=== PATIENT | male | born 1950 | race Caucasian/White ===

== ENCOUNTER 2023-05-16 08:28 | Day surgery (SDC) | payer MEDICARE ==
[2023-05-16] MEDS ORDERED: EUTHYROX88 MCG (09:04)
[2023-05-16] MEDS ORDERED: LOSA50 (09:05)
[2023-05-16] MEDS ORDERED: TESTOSTERONE CYP5 GM (09:05)
[2023-05-16] MEDS ORDERED: CREON DR 12,001 EACH (09:06)
[2023-05-16 10:58] VITALS: BP 113/64
== END 2023-05-16 11:00 | disposition home or self-care (01) ==
LOC: ORSCSDS 08:28
PROVIDERS: Internal Medicine Gastroenterology
PROC: 0DDB8ZX Extraction of Ileum, Via Natural or Artificial Opening Endoscopic, Diagnostic (ICD-10-PCS; principal; 2023-05-16 09:45)
PROC: 0DDE8ZX Extraction of Large Intestine, Via Natural or Artificial Opening Endoscopic, Diagnostic (ICD-10-PCS; principal; 2023-05-16 09:45)
DX: K50.90 Crohn's disease, unspecified, without complications (principal); N18.9 Chronic kidney disease, unspecified; E03.9 Hypothyroidism, unspecified; E11.9 Type 2 diabetes mellitus without complications; Z87.891 Personal history of nicotine dependence; Z79.899 Other long term (current) drug therapy
CPT/HCPCS: 88305; J2704; J7120

== ENCOUNTER → 2023-05-21 | Outpatient (CLI) | payer MEDICARE ==
[~2023-05-21] MED LIST: CREON DR 12,001 EACH; EUTHYROX88 MCG; LOSA50; TESTOSTERONE CYP5 GM
[2023-05-23 16:35] LABS: CALPROTECTIN,FECAL 25 ug/g (<=49)
== END | disposition home or self-care (01) ==
LOC: LAB 12:38 → LAB SHORT 12:38
PROVIDERS: Internal Medicine Gastroenterology
DX: K50.912 Crohn's disease, unspecified, with intestinal obstruction (principal)
CPT/HCPCS: 83993

== ENCOUNTER 2023-05-26 01:45 | Day surgery (SDC) | payer MEDICARE ==
[~2023-05-26] VITALS: Wt 68.7 kg
[2023-05-26] MEDS ORDERED: Infliximab-DYYB 400 MG in NS 250 ML IV SCH (06:00)
[2023-05-26] MEDS ORDERED: Acetaminophen 325 MG TABLET PO SCH (12:50)
[2023-05-26] MEDS ORDERED: DiphenhydrAMINE HCL 25 MG Cap PO PRN (12:50)
[2023-05-26] MEDS ORDERED: Hydrocortisone Sod Succinate 100 MG Vial IV SCH (12:50)
[2023-05-26 13:56] VITALS: BP 107/64
== END 2023-05-26 16:13 | disposition home or self-care (01) ==
LOC: ATC 01:45
DX: K50.918 Crohn's disease, unspecified, with other complication (principal); E11.22 Type 2 diabetes mellitus with diabetic chronic kidney disease; N18.9 Chronic kidney disease, unspecified; Z88.2 Allergy status to sulfonamides; Z79.899 Other long term (current) drug therapy
CPT/HCPCS: 96413; 96415; J7050; Q5103

== ENCOUNTER 2023-06-09 08:30 | Day surgery (SDC) | payer MEDICARE ==
[~2023-06-09 08:30] MED LIST changes: +Infliximab-DYYB 400 MG in NS 250 ML IV SCH
[2023-06-09 13:41] VITALS: BP 122/52
== END 2023-06-09 16:20 | disposition home or self-care (01) ==
LOC: ATC 08:30
DX: K50.90 Crohn's disease, unspecified, without complications (principal); N18.9 Chronic kidney disease, unspecified; E03.9 Hypothyroidism, unspecified; Z88.2 Allergy status to sulfonamides; Z79.899 Other long term (current) drug therapy
CPT/HCPCS: 96413; 96415; J7050; Q5103

== ENCOUNTER → 2023-10-09 | Outpatient (CLI) | payer MEDICARE ==
[~2023-10-09] MED LIST changes: +DEPO-TESTO200 MG/18 IM; +EUTHYROX100 MC1 PO; +INFLECTRA100 MG; +IRON18 MG PO; -Infliximab-DYYB 400 MG in NS 250 ML IV SCH; +LOSA50 PO; +VITAMIN D31250 MC2 PO
[2023-10-11 11:18] LABS: PANCREATIC ELASTASE,FECAL 56 ug/g (>=100)
== END | disposition home or self-care (01) ==
LOC: LAB 11:20 → LAB SHORT 11:20
PROVIDERS: Physician Assistant Medical
DX: R19.7 Diarrhea, unspecified (principal)
CPT/HCPCS: 82653

== ENCOUNTER 2023-10-16 03:15 | Day surgery (SDC) | payer MEDICARE ==
[2023-10-16] MEDS ORDERED: Infliximab-DYYB 400 MG in NS 250 ML IV SCH (06:00)
[2023-10-16 08:07] VITALS: BP 163/73
== END 2023-10-16 11:02 | disposition home or self-care (01) ==
LOC: ATC 03:15
DX: K50.90 Crohn's disease, unspecified, without complications (principal); N18.9 Chronic kidney disease, unspecified; E03.9 Hypothyroidism, unspecified; Z87.891 Personal history of nicotine dependence; Z88.2 Allergy status to sulfonamides; Z79.890 Hormone replacement therapy; Z79.899 Other long term (current) drug therapy
CPT/HCPCS: 96413; 96415; J7050; Q5103

== ENCOUNTER 2023-12-11 02:39 | Day surgery (SDC) | payer MEDICARE ==
[2023-12-11] MEDS ORDERED: Infliximab-DYYB 400 MG in NS 250 ML IV SCH (06:00)
[2023-12-11 09:12] VITALS: BP 159/81
== END 2023-12-11 11:58 | disposition home or self-care (01) ==
LOC: ATC 02:39
DX: K50.00 Crohn's disease of small intestine without complications (principal); N18.9 Chronic kidney disease, unspecified; E03.9 Hypothyroidism, unspecified; Z87.891 Personal history of nicotine dependence; Z88.2 Allergy status to sulfonamides; Z79.890 Hormone replacement therapy; Z79.899 Other long term (current) drug therapy
CPT/HCPCS: 96413; 96415; J7050; Q5103

== ENCOUNTER 2024-02-05 02:37 | Day surgery (SDC) | payer MEDICARE ==
[~2024-02-05] VITALS: Wt 75.6 kg
[2024-02-05] MEDS ORDERED: Infliximab-DYYB 400 MG in NS 250 ML IV SCH (06:00)
[2024-02-05 08:58] VITALS: BP 136/58
== END 2024-02-05 11:31 | disposition home or self-care (01) ==
LOC: ATC 02:37
DX: K50.012 Crohn's disease of small intestine with intestinal obstruction (principal); N18.9 Chronic kidney disease, unspecified; Z87.891 Personal history of nicotine dependence; Z88.2 Allergy status to sulfonamides; Z79.899 Other long term (current) drug therapy
CPT/HCPCS: 96413; 96415; J7050; Q5103

== ENCOUNTER 2024-04-01 02:29 | Day surgery (SDC) | payer MEDICARE ==
[~2024-04-01] VITALS: Wt 75.3 kg
[~2024-04-01 02:29] MED LIST changes: +Infliximab-DYYB 400 MG in NS 250 ML IV SCH
[2024-04-01 14:11] VITALS: BP 145/68
== END 2024-04-01 16:41 | disposition home or self-care (01) ==
LOC: ATC 02:29
DX: K50.012 Crohn's disease of small intestine with intestinal obstruction (principal); N18.9 Chronic kidney disease, unspecified; Z87.891 Personal history of nicotine dependence; Z88.2 Allergy status to sulfonamides; Z88.8 Allergy status to other drugs, medicaments and biological substances; Z79.899 Other long term (current) drug therapy
CPT/HCPCS: 96413; 96415; J7050; Q5103

== ENCOUNTER 2024-05-27 00:50 | Day surgery (SDC) | payer MEDICARE ==
[~2024-05-27 00:50] MED LIST changes: -Infliximab-DYYB 400 MG in NS 250 ML IV SCH; +LEVOTHYROXINE112 M19 PO
[2024-05-27] MEDS ORDERED: Infliximab-DYYB 400 MG in NS 250 ML IV SCH (06:00)
[2024-05-27 13:54] VITALS: BP 160/74
== END 2024-05-27 16:34 | disposition home or self-care (01) ==
LOC: ATC 00:50
DX: K50.012 Crohn's disease of small intestine with intestinal obstruction (principal); E11.22 Type 2 diabetes mellitus with diabetic chronic kidney disease; N18.9 Chronic kidney disease, unspecified; E03.9 Hypothyroidism, unspecified; Z87.891 Personal history of nicotine dependence; Z88.2 Allergy status to sulfonamides; Z79.899 Other long term (current) drug therapy
CPT/HCPCS: 96413; 96415; J7050; Q5103

== ENCOUNTER 2024-07-21 01:37 | Day surgery (SDC) | payer MEDICARE ==
[~2024-07-21] VITALS: Wt 76.6 kg
[2024-07-21] MEDS ORDERED: Infliximab-DYYB 400 MG in NS 250 ML IV SCH (06:00)
[2024-07-21 13:38] VITALS: BP 143/69
== END 2024-07-21 16:19 | disposition home or self-care (01) ==
LOC: ATC 01:37
DX: K50.012 Crohn's disease of small intestine with intestinal obstruction (principal); N18.9 Chronic kidney disease, unspecified; Z87.891 Personal history of nicotine dependence; Z88.2 Allergy status to sulfonamides; Z79.890 Hormone replacement therapy; Z79.899 Other long term (current) drug therapy
CPT/HCPCS: 96413; 96415; J7050; Q5103

== ENCOUNTER 2024-09-15 00:51 | Day surgery (SDC) | payer MEDICARE ==
[~2024-09-15 00:51] MED LIST changes: +Infliximab-DYYB 400 MG in NS 250 ML IV SCH
[2024-09-15 14:12] VITALS: BP 138/63
== END 2024-09-15 16:39 | disposition home or self-care (01) ==
LOC: ATC 00:51
DX: K50.90 Crohn's disease, unspecified, without complications (principal); N18.9 Chronic kidney disease, unspecified; E55.9 Vitamin D deficiency, unspecified; K86.89 Other specified diseases of pancreas; Z87.891 Personal history of nicotine dependence; Z79.620 Long term (current) use of immunosuppressive biologic; Z79.890 Hormone replacement therapy; Z79.899 Other long term (current) drug therapy; Z88.2 Allergy status to sulfonamides; Z90.49 Acquired absence of other specified parts of digestive tract
CPT/HCPCS: 96413; 96415; J7050; Q5103

== ENCOUNTER 2024-11-09 01:08 | Day surgery (SDC) | payer MEDICARE ==
[~2024-11-09 01:08] MED LIST changes: -Infliximab-DYYB 400 MG in NS 250 ML IV SCH
[2024-11-09 14:02] VITALS: BP 133/68
== END 2024-11-09 16:35 | disposition home or self-care (01) ==
LOC: ATC 01:08
DX: K50.012 Crohn's disease of small intestine with intestinal obstruction (principal); E55.9 Vitamin D deficiency, unspecified; K86.89 Other specified diseases of pancreas; E11.22 Type 2 diabetes mellitus with diabetic chronic kidney disease; N18.9 Chronic kidney disease, unspecified; K86.1 Other chronic pancreatitis; Z87.891 Personal history of nicotine dependence; Z79.890 Hormone replacement therapy; Z79.899 Other long term (current) drug therapy; Z88.2 Allergy status to sulfonamides; Z90.49 Acquired absence of other specified parts of digestive tract
CPT/HCPCS: 96413; 96415; J7050; Q5103

== ENCOUNTER → 2024-12-31 | Outpatient (CLI) | payer MEDICARE ==
[2025-01-03 16:07] LABS: CALPROTECTIN,FECAL 18 ug/g (<=49)
== END | disposition home or self-care (01) ==
LOC: LAB SHORT 11:39 → LAB 11:39
PROVIDERS: Physician Assistant Medical
DX: K50.012 Crohn's disease of small intestine with intestinal obstruction (principal)
CPT/HCPCS: 83993

== ENCOUNTER 2025-03-01 00:27 | Day surgery (SDC) | payer MEDICARE ==
[2025-03-01 13:51] VITALS: BP 147/68
== END 2025-03-01 16:14 | disposition home or self-care (01) ==
LOC: ATC 00:27
DX: K50.012 Crohn's disease of small intestine with intestinal obstruction (principal); K90.0 Celiac disease; K86.89 Other specified diseases of pancreas; K86.1 Other chronic pancreatitis; E55.9 Vitamin D deficiency, unspecified; I12.9 Hypertensive chronic kidney disease with stage 1 through stage 4 chronic kidney disease, or unspecified chronic kidney disease; N18.9 Chronic kidney disease, unspecified; Z79.890 Hormone replacement therapy; Z79.899 Other long term (current) drug therapy; Z88.2 Allergy status to sulfonamides; Z87.891 Personal history of nicotine dependence; Z90.49 Acquired absence of other specified parts of digestive tract
CPT/HCPCS: 96413; 96415; J7050; Q5103